=== PATIENT | female | born 1975 | race Caucasian/White ===

== ENCOUNTER 2017-08-04 06:16 | Inpatient (IN) | payer OTHER ==
[~2017-08-04] VITALS: Ht 167.6 cm; Wt 82.6 kg
[2017-08-04] VITALS (22 sets, daily range): BP systolic 113–154; BP diastolic 61–84
--- NOTE | ~2017-08-04 | EKG ---
[address] [address] ELECTROCARDIOGRAM REPORT Name: JACE CHOI Room #: 170-1 ADM IN M.R.#: [id number] Admission: 08/04/17 Attend Phys: Harshil Carrizales MD Discharge: Date of : 71 Report #: [id number] THIS REPORT FOR: //name// [facility] ED Test Date: 2017-08-04 Test Time: 07:02:22 Pat Name: JACE CHOI Department: Room: 170 Gender: F Tie Bucker: [place] : 1975 Requested By: Derrell Timmons Order Number: [id number] MD: En Arriaza Measurements Intervals [place] Rate: 76 P: 67 MN: 165 QRS: 29 QRSD: 142 T: 16 QT: 442 QTc: 498 Interpretive Statements Sinus rhythm Right bundle branch block No previous ECG available for comparison Electronically Signed On 08-04-2017 12:14:03 CDT by En Arriaza [email or web address] <ELECTRONICALLY SIGNED> By: En Arriaza MD 08/04/17 1214 0702 1 En Arriaza MD /MARCOS
--- NOTE | ~2017-08-04 | EKG ---
[address] [address] ELECTROCARDIOGRAM REPORT Name: JACE CHOI Jailyn Room #: 170-1 ADM IN M.R.#: [id number] Admission: 08/04/17 Attend Phys: Harshil Carrizales MD Discharge: Date of : 71 Report #: [id number] THIS REPORT FOR: //name// [facility] ED Test Date: 2017-08-04 Test Time: 08:38:52 Pat Name: JACE CHOI Department: Room: 170 Gender: F Certified Procedural Coder: [facility] : 1975 Requested By: Derrell Timmons Order Number: [id number] MD: En Arriaza Measurements Intervals [place] Rate: 122 P: 75 [place]: 111 QRS: 71 QRSD: 136 T: 13 QT: 364 QTc: 519 Interpretive Statements Sinus tachycardia Consider right atrial enlargement Right bundle branch block Probable inferior infarct, old Artifact in lead(s) II,III,aVR,aVF,V3,V4,V5,V6 No previous ECG available for comparison Electronically Signed On 08-04-2017 12:18:10 CDT by En Arriaza [email or web address] <ELECTRONICALLY SIGNED> By: En Arriaza MD 08/04/17 1218 En Arriaza MD /EPI
--- NOTE | ~2017-08-04 | HC ---
[facility] [place] [address] CONSULTATION Name: JACE CHOI Room #: 349-I [facility] IN ..#: [id number] Admission: 08/04/17 Attend Phys: Harshil Carrizales MD Discharge: 08/06/17 Date of : 71 Report #: [id number] THIS REPORT FOR: //name// CC: Vandana Carrizales DATE OF SERVICE: 08/04/2017 REASON FOR CONSULTATION: Hypoxia. IMPRESSION: 1. Possible bronchitis with mucus plugging. 2. Mild hilar mediastinal adenopathy. 3. Abdominal pain with nausea, vomiting and bloating with impacted gallstone. 4. Tobacco use. 5. Hyperglycemia. 6. Leukocytosis. 7. Metabolic acidosis. 8. Hypoxemia. PLAN: Aggressive pulmonary toilet, we will leave on the current she is on I believe at time of ABG likely was related to pain that she became hypoxemic in association with the mucus plugging. HISTORY OF PRESENT ILLNESS: A very pleasant 42-year-old female last night had abdominal pain, nausea, vomiting, bloating, took Fleet's enema, had 2 small bowel movements, had some bleeding at that time. Today, workup showed gallstone early in the week had sinus problems, cough and shortness of breath. PAST MEDICAL HISTORY: MEDICATIONS: Include fish oil, Flonase, Zyrtec, Synthroid and Prozac. ALLERGIES: TO HYDROCODONE. FAMILY HISTORY: No history of DVT or PE. SOCIAL HISTORY: Positive tobacco and ETOH, no drugs of abuse. 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 REVIEW OF SYSTEMS: History of anxiety, hypothyroidism, irritable bowel. Sinus disease. PHYSICAL EXAMINATION: VITAL SIGNS: Temperature 98.7, pulse 94, respirations 25, BP 133/78. EYES: Negative icterus. [facility] [address] [place] [address] CONSULTATION Name: STEPHJACE Room #: 349-I [facility] IN [facility]#: [id number] Admission: 08/04/17 Attend Phys: Harshil Carrizales MD Discharge: 08/06/17 Date of : 71 Report #: [id number] NECK: Negative JVD. LUNGS: Showed occasional wheeze. HEART: Regular. ABDOMEN: Bowel sounds present. EXTREMITIES: Showed no calf tenderness. CT and CBC were reviewed. We will follow closely with you. <ELECTRONICALLY SIGNED> By: Augustine Daniels MD 08/08/17 2316 2037 1301 Augustine Daniels MD /nt
--- NOTE | ~2017-08-04 | HC ---
[facility] [place] [address] CONSULTATION Name: JACE CHOI Room #: 349-I ADM IN ..#: [id number] Admission: 08/04/17 Attend Phys: Harshil Carrizales MD Discharge: Date of : 71 Report #: [id number] THIS REPORT FOR: //name// CC: Vandana Carrizales DATE OF SERVICE: 08/04/2017 REFERRING PROVIDER: Harshil Carrizales MD REASON FOR CONSULT: Abdominal pain. HISTORY OF PRESENT ILLNESS: The patient is a 42-year-old female who presented to the Emergency Room earlier today with complaints of abdominal pain, nausea, vomiting and bloating since 10:00 p.m. last night. The patient states that the pain began after eating and she felt as though she might have to have a bowel movement but was unable. The patient therefore went and got a Fleet enema, which she utilized and had only 2 small bowel movements as well as blood when wiping. In addition, the patient did have a history of sinus congestion earlier in the week and has been taking [id number] cold medications that she thought were exacerbating her abdominal complaints. The patient does have a history of undergoing colonoscopy 5 years ago for irritable bowel syndrome with polypectomy, but no other abnormalities. A thorough workup in the Emergency Room was conducted including laboratories, abdominal x-rays, a CT scan of the abdomen as well as a CT angiogram of the chest to rule out a pulmonary embolism and an ultrasound of the abdomen. Throughout this extensive workup, she has been found to have a leukocytosis with a white blood cell count of 14.2 thousand. Her liver function enzymes are normal. Abdominal x-ray and CT angiogram of the chest are both normal. No evidence of DVT in the bilateral lower extremities; however, her CT scan of the abdomen and pelvis as well as a followup ultrasound of the abdomen show mild gallbladder wall thickening with a gallstone lodged in the neck of the gallbladder that is nonmobile. Her troponins have been negative as well. As the patient is having abdominal pain and this appears to be a biliary source, I am asked to evaluate from a surgical standpoint. PAST MEDICAL HISTORY: Anxiety, irritable bowel syndrome and hypothyroidism. HOME MEDICATIONS: Prozac, Synthroid, Zyrtec, Flonase and fish oil. ALLERGIES: HYDROCODONE, which causes itching. FAMILY HISTORY: Reviewed and noncontributory. SOCIAL HISTORY: The patient smokes cigarettes and has smoked a half a pack a day for several years. She does drink alcohol on special occasions, [place] [address] CONSULTATION Name: JACE CHOI Room #: 349-I [facility] IN [facility].#: [id number] Admission: 08/04/17 Attend Phys: Harshil Carrizales MD Discharge: Date of : 71 Report #: [id number] to excess and denies illicit drug use. 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 REVIEW OF SYSTEMS: GENERAL: The patient denies nocturnal fevers or chills. HEENT: No change in vision, change in hearing. NECK: No swelling or difficulty swallowing. HEART: No chest pain, palpitations. LUNGS: No cough or shortness of breath. ABDOMEN: Abdominal pain, nausea, vomiting and bloating. GENITOURINARY: No dysuria or hematuria. ENDOCRINE: No polyuria, polydipsia. HEMATOLOGIC: No history of bleeding or easy bruising. EXTREMITIES: No history of weakness or limited range of motion. NEUROLOGIC: No history of syncope or near syncopal episodes. SKIN AND INTEGUMENT: No history of abnormal lesions or moles. PSYCHIATRIC: No history of anxiety or depression. PHYSICAL EXAMINATION: VITAL SIGNS: Temperature 36.4, pulse 86, respirations 18, blood pressure 154/77. She weighs 184 pounds. GENERAL: She is alert and oriented, in no acute distress. HEENT: Normocephalic, atraumatic. Pupils are equal, round, reactive to light. NECK: Supple, without lymphadenopathy. Trachea midline. HEART: Regular rate and rhythm. LUNGS: Clear to auscultation bilaterally. ABDOMEN: Soft, nondistended. She is tender to deep palpation of the right upper quadrant with no guarding, rebound or peritoneal signs or symptoms. GENITOURINARY: Normal external female genitalia. EXTREMITIES: No clubbing, cyanosis or edema. NEUROLOGIC: Cranial nerves 2-12 are grossly intact. PSYCHIATRIC: Normal mood and affect. SKIN AND INTEGUMENT: No abnormal lesions or moles. RECTAL: Deferred as it was performed by the Emergency Room physician with no signs of abnormality. LABORATORY AND X-RAY DATA: CBC shows white blood cell count of 14.2 thousand, hemoglobin 13.6, platelets 334,000. Her creatinine is 1.1. Liver function enzymes and lipase are normal. Urinalysis shows contaminated specimen. Abdominal x-ray shows small amount of stool in the colon, but normal findings otherwise. CT angiogram of the chest was negative. Chest x-ray negative. Lower extremity duplex ultrasound negative for DVT. CT scan of the abdomen, pelvis and ultrasound of the abdomen as per HPI show a gallstone lodged in the neck of the gallbladder with likely early acute cholecystitis. ASSESSMENT AND PLAN: A 42-year-old female with abdominal pain since 10:[address] [place] [address] CONSULTATION Name: JACE CHOI Room #: 349-I ADM IN M.R.#: [id number] Admission: 08/04/17 Attend Phys: Harshil Carrizales MD Discharge: Date of : 71 Report #: [id number] last night, accompanied by nausea, vomiting and bloating and a workup consistent with an impacted gallstone in the neck of the gallbladder with early acute cholecystitis. The patient has been admitted and I recommend continuation of ice chips today for comfort with strict n.p.o. after midnight and we will make plans to go to the operating room first thing tomorrow morning for laparoscopic cholecystectomy with cholangiogram. Risks, benefits and alternatives of that procedure have been discussed with the patient in detail and she agrees to proceed as outlined. I will initiate empiric antibiotic therapy at this time as well. I sincerely appreciate this consult. I will follow along and leave any further recommendations in the patient's chart as appropriate. <ELECTRONICALLY SIGNED> By: Joes Harris MD, FACS 08/05/17 0859 121 10 Jose Harris MD, FACS /nt
--- NOTE | ~2017-08-04 | S ---
[facility] [place] [address] SURGICAL PATH RPT PROCEDURE Name: KIANNA NINO Room #: 349-I DIS IN M.R.#: [id number] Admission: 08/04/17 Date of : 71 Discharge: 08/06/17 Report #: [id number] Path Case #: [id number] PATHOLOGY REPORT COLLECTION DATE: 08/05/2017 RECEIVED DATE: 08/06/2017 SUBMITTING PHYS: Dr. Jose Harris OTHER PHYS: Moy Hudson Dr[address] Dr. SPECIMEN(S) RECEIVED: A.Gallbladder * * * * * * * * * * * * FINAL DIAGNOSIS: "Gallbladder", cholecystectomy: - Acute cholecystitis and cholesterolosis. - Lymph node with hyperplasia. (1 node) (CLW:db; 08/07/2017) PATHOLOGIST: Kim Hope M.D. REPORT ELECTRONICALLY SIGNED BY: Kim Hope M.D. DATE/TIME: 08/07/2017 14:07 * * * * * * * * * * * * GROSS PATHOLOGY: Received in formalin labeled "Kianna Nino, gallbladder," is a 7.6 x 2.9 x 1.4 cm, previously opened gallbladder with cheek-reddy and smooth serosal surfaces. The opened gallbladder reveals green-brown mucosa that is stippled yellow highlights and an average wall thickness of 0.3 cm. Calculi are not present and a single lymph node is identified adjacent the neck aspect. Oil Developer sections from the body and fundus are submitted along with the proximal margin and lymph node in cassette A1. (SDY; 08/06/2017) CLINICAL HISTORY: Cholelithiasis INITIAL CPT CODE(S): A; 47325 Professional services performed by [facility] at [facility] [address] , [place] [address] [facility] [address] [place] [address] SURGICAL PATH RPT PROCEDURE Name: KIANNA NINO Jailyn Room #: 349-I DIS IN M.R.#: [id number] Admission: 08/04/17 Date of : 71 Discharge: 08/06/17 Report #: [id number] Path Case #: [id number] Technical services performed by [facility] at [address] [place] [address], [facility] [address] [place] [address]. [place] [address] PHONE: [phone] DIRECTOR: Gabriel Rodríguez M.D. * * * END OF REPORT * * *
--- NOTE | ~2017-08-04 | O ---
[facility] [place] [address] OPERATIVE REPORT Name: JACE CHOI Room #: 349-I ADM IN ..#: [id number] Admission: 08/04/17 Attend Phys: Harshil Carrizales MD Discharge: Date of : 71 Report #: [id number] THIS REPORT FOR: //name// CC: Vandana Carrizales DATE OF SERVICE: 08/05/2017 PREOPERATIVE DIAGNOSIS: Acute cholecystitis. POSTOPERATIVE DIAGNOSIS: Acute cholecystitis. PROCEDURE PERFORMED: Laparoscopic cholecystectomy with intraoperative cholangiogram. SURGEON: Jose Harris M.D. ATHLETIC EQUIPMENT MANAGER: Michael Diaz M.D. ANESTHESIA: General endotracheal anesthesia. ESTIMATED BLOOD LOSS: Minimal (less than 5 mL). COMPLICATIONS: None appreciated. SPECIMENS: Gallbladder to pathology. INDICATIONS: The patient is a 42-year-old female who presented to the Emergency Room yesterday with severe sudden onset epigastric and right upper quadrant abdominal pain that began the night prior. The patient underwent an extensive evaluation with findings of a gallstone impacted in the neck of the gallbladder. The patient was placed on empiric antibiotics and admitted and indication was for definitive surgical management today. DESCRIPTION OF PROCEDURE: After explaining the risks, benefits and alternatives of the procedure with the patient in detail in the preoperative holding area and obtaining written consent, the patient was brought to the operating room and placed supine on the operating room table. After conducting a thorough timeout procedure verifying correct patient and procedure, the patient was given general endotracheal anesthesia. Once adequate anesthesia was obtained, her SCDs were hooked up to pneumatic compression device. She was given a preoperative dose of antibiotics in line with the SCIP protocol as it was time for her regularly scheduled dose from her inpatient regimen. The patient's abdomen was then prepped and draped in standard surgical sterile fashion. 5 mL of 0.5% Marcaine with epinephrine were used to anesthetize the skin in the supraumbilical location. A #15 bladed scalpel was used to create a 1 cm transverse skin [address] [address] OPERATIVE REPORT Name: JACE CHOI Room #: 349-I [facility] IN [facility]#: [id number] Admission: 08/04/17 Attend Phys: Harshil Carrizales MD Discharge: Date of : 71 Report #: [id number] incision at this location. An 11 mm Visiport was placed over 0 degree 5 mm laparoscope and was introduced through this incision site. Once intra-abdominal placement was verified visually, the obturator for the trocar and laparoscope were both removed and the abdomen was insufflated to 15 mmHg using carbon dioxide gas. The laparoscope was changed to a 10-mm 30-degree laparoscope, which was reintroduced through this trocar. The entire abdomen was evaluated to ensure no injury upon entry. The patient was now placed in steep reverse Trendelenburg position with right side elevated and I proceeded to place 3 additional 5-mm ports. One was placed in subxiphoid location and 2 were placed along the patient's right subcostal margin. All 3 additional 5-mm ports were placed under direct vision after anesthetizing the skin at each location with 5 mL of 0.5% Marcaine with epinephrine and I created small skin nicks using #15 bladed scalpel. The patient's gallbladder was pale yet hyperemic and there was significant edema, all consistent with acute cholecystitis. Using the inferolateral most port along the patient's right flank, the fundus of the gallbladder was grasped and retracted cephalad. Careful tedious dissection was undertaken down around the cholecysto-cystic junction using combination of Harmonic scalpel and [place] dissector. Once I had attained a critical view, namely the cystic duct emanating from the infundibulum of the gallbladder and coursing the common bile duct as well as cystic artery running the surface of the gallbladder and I created a window behind each, I transected the cystic artery nearest the gallbladder side using Harmonic scalpel for hemostasis. A single clip was now placed along cystic duct nearest the gallbladder side and a small ductotomy was made just distal to this clip using EndoShears. This ductotomy was cannulated using the taut cholangiocatheter setup and an intraoperative cholangiogram was obtained. We had prompt opacification of a long cystic duct with both intra and extrahepatic bile ducts becoming opacified. There was antegrade flow of contrast into the duodenum with no evidence of filling defects or obstruction. The cholangiocatheter setup was now removed, 3 clips were placed along the cystic duct nearest the common bile duct side and the duct was transected between sets of clips using Harmonic scalpel to help seal the duct closed. Further retraction at the infundibulum of the gallbladder in cephalad direction allowed me to elevate the gallbladder off the liver bed using Harmonic scalpel for complete hemostasis. Once completely detached, the laparoscope was removed, changed to a 5-mm 30-degree laparoscope and was reintroduced through the right midclavicular 5 mm port. The EndoCatch bag was placed in the supraumbilical trocar and the specimen was placed within it under direct vision. The pursestring suture was drawn and specimen was removed from the abdomen under direct vision with ease. I now closed the supraumbilical fascial incision using 0 PDS suture on the Yo-Akilah suture passer device under direct vision. This was tied down after reducing insufflation pressure to 5 mmHg to ensure I did not catch a loop of bowel or omentum in the suture repair. A final evaluation of the gallbladder fossa showed complete hemostasis, although there was still significant periportal edema from her cholecystitis, I did elect to place Florina in the bed of the gallbladder fossa for assistance with long-term hemostasis. The abdomen was fully desufflated. All remaining [address] [address] OPERATIVE REPORT Name: JACE CHOI Room #: 349-I ADM IN [facility]#: [id number] Admission: 08/04/17 Attend Phys: Harshil Carrizales MD Discharge: Date of : 71 Report #: [id number] trocars were removed under direct vision. A 4-0 Monocryl was used in a standard subcuticular fashion for all skin incisions and Dermabond glue was applied to all skin wounds. The gallbladder was opened on the back table showing significant findings of marked cholesterolosis consistent with chronic cholecystitis. However, there was a stone impacted in the neck of the gallbladder and gallbladder wall thickening with edema, all consistent with acute cholecystitis as well. At the end of the procedure, all instrument, needle and sponge counts were correct. The patient tolerated the procedure without incident, was awakened in the operating room and transitioned to the recovery room in stable condition with no apparent complications. <ELECTRONICALLY SIGNED> By: Jose Harris MD, FACS 08/05/17 1043 1022 1039 Jose Harris MD, FACS /nt
[2017-08-04] MEDS ORDERED: PROZAC20 MG PO (06:35)
[2017-08-04] MEDS ORDERED: TIROSINT25 MCG PO (06:36)
[2017-08-04] MEDS ORDERED: ZYRTEC10 MG PO (06:36)
[2017-08-04] MEDS ORDERED: FLONASE 0.05%50 MCG NASAL (06:36)
[2017-08-04] MEDS ORDERED: FISH OIL 1,001000 M2 PO (06:37)
[2017-08-04 06:57] LABS: URINE BILIRUBIN NEGATIVE (Negative); URINE BLOOD 3+ (Negative); URINE CLARITY CLEAR; URINE COLOR YELLOW; URINE GLUCOSE-RANDOM* NEGATIVE (Negative); URINE KETONES 1+ (Negative); URINE LEUKOCYTES-REFLEX NEGATIVE (Negative); URINE NITRITE-REFLEX NEGATIVE (Negative); URINE PROTEIN (DIPSTICK) NEGATIVE (Negative); URINE SPECIFIC GRAVITY 1.025 (1.005-1.035); URINE UROBILINOGEN 0.2 E.U./dl (0.2-1.0)
[2017-08-04 07:00] LABS: ABSOLUTE NEUTROPHILS 11.6 thou/uL (1.4-8.2); BASOPHILS 0.2 % (0.0-2.0); EOSINOPHILS 0.1 % (0.0-3.0); HEMATOCRIT 39.7 % (37.0-47.0); HEMOGLOBIN 13.6 gm/dL (12.0-15.0); LYMPHOCYTES 14.5 % (24.0-44.0); MCH 31.6 pg (26.0-34.0); MCHC 34.2 g/dL (28.0-37.0); MCV 92.2 fL (80.0-100.0); MONOCYTES 3.6 % (1.0-8.0); PLATELET COUNT 334 thou/uL (150-400); POLYS 81.6 % (36.0-66.0); RBC 4.31 mil/uL (4.20-5.00); RDW 13.2 % (10.5-14.5); WBC 14.2 thou/uL (4.0-11.0)
[2017-08-04 07:08] LABS: ANION GAP 13 mmol/L (7-16); BUN 11 mg/dL (7-18); CALCIUM 9.5 mg/dL (8.5-10.1); CHLORIDE 103 mmol/L (98-107); CO2 19 mmol/L (21-32); CREATININE 1.1 mg/dL (0.6-1.0); GLUCOSE 142 mg/dL (74-106); POTASSIUM 3.6 mmol/L (3.5-5.1); SODIUM 135 mmol/L (136-145)
[2017-08-04 07:17] LABS: ALBUMIN 3.3 g/dL (3.4-5.0); LIPASE 170 U/L (73-393); SGOT 17 U/L (15-37); SGPT 22 U/L (30-65); TOTAL BILIRUBIN 0.2 mg/dL (<0.1-1.0); TOTAL PROTEIN 8.2 g/dL (6.4-8.2); TROPONIN-I < 0.04 ng/mL (<0.06)
[2017-08-04 07:18] LABS: SQUAMOUS 4-10 Moderate /LPF (0-3)
[2017-08-04 07:19] LABS: CASTS None Seen /LPF (None Seen); CRYSTALS None Seen /LPF (None Seen); MUCUS 0-3 Light strn/LPF (None Seen)
[2017-08-04 07:20] LABS: BACTERIA-REFLEX 1-9 Few /HPF (None Seen); URINE WBC-REFLEX None Seen /HPF (0-5)
[2017-08-04 08:51] LABS: BE(vivo) -7.9 mmol/L (-2 to +3); HCO3 14.9 mmol/L (22.0-26.0); pH 7.397 (7.360-7.450); sO2 88.9 % (92.0-98.0)
[2017-08-04 08:52] LABS: PCO2 24.8 mmHg (35.0-45.0); PO2 54.2 mmHg (80.0-100.0)
[2017-08-04 20:47] LABS: CALCIUM 8.1 mg/dL (8.5-10.1); CREATININE 1.1 mg/dL (0.6-1.0); POTASSIUM 3.4 mmol/L (3.5-5.1)
[2017-08-05 04:50] VITALS: BP 122/72
[2017-08-05 05:43] LABS: HEMATOCRIT 34.4 % (37.0-47.0); MCH 31.3 pg (26.0-34.0); MCHC 33.7 g/dL (28.0-37.0); MCV 93.1 fL (80.0-100.0); RBC 3.69 mil/uL (4.20-5.00); RDW 13.2 % (10.5-14.5); WBC 20.3 thou/uL (4.0-11.0)
[2017-08-05 05:46] LABS: HEMOGLOBIN 11.6 gm/dL (12.0-15.0)
[2017-08-05 06:01] LABS: ALBUMIN 2.5 g/dL (3.4-5.0); CALCIUM 8.1 mg/dL (8.5-10.1); POTASSIUM 3.6 mmol/L (3.5-5.1); TOTAL BILIRUBIN 0.3 mg/dL (<0.1-1.0); TOTAL PROTEIN 6.5 g/dL (6.4-8.2)
[2017-08-05 07:04] VITALS: BP 137/83
[2017-08-05 20:00] VITALS: BP 119/66
[2017-08-06 03:40] VITALS: BP 116/56
[2017-08-06 05:51] LABS: HEMATOCRIT 29.8 % (37.0-47.0); HEMOGLOBIN 10.4 gm/dL (12.0-15.0); MCH 32.1 pg (26.0-34.0); MCHC 34.7 g/dL (28.0-37.0); MCV 92.5 fL (80.0-100.0); RBC 3.23 mil/uL (4.20-5.00); RDW 13.2 % (10.5-14.5); WBC 20.4 thou/uL (4.0-11.0)
[2017-08-06 06:09] LABS: ALBUMIN 2.3 g/dL (3.4-5.0); CREATININE 0.9 mg/dL (0.6-1.0); POTASSIUM 3.2 mmol/L (3.5-5.1); TOTAL BILIRUBIN 0.3 mg/dL (<0.1-1.0); TOTAL PROTEIN 5.9 g/dL (6.4-8.2)
[2017-08-06 07:50] VITALS: BP 131/71
[2017-08-06] MEDS ORDERED: LEVOFLOXACIN750 MG PO (11:53)
[2017-08-06] MEDS ORDERED: VENTOLIN HFA 1818 GM INH (11:59)
[2017-08-06 12:01] VITALS: BP 140/75
[2017-08-06] MEDS ORDERED: PREDNISONE 10 M10 MG PO (12:06)
[2017-08-06] MEDS ORDERED: WELLBUTRIN XL150 MG PO (13:01)
[2017-08-06 13:05] VITALS: BP 140/75
[2017-08-06] MEDS ORDERED: TRAMADOL 50 MG50 MG PO (14:33)
== END 2017-08-06 14:52 | disposition home or self-care (01) | DRG 853 ==
LOC: ER 06:16 → 3W 09:19 → EROBS 09:19 → ICU 13:29 → 3W 23:27 → ENTRNSPT 08-06 14:40 → EDTRNSPTSTS 08-06 14:42 → 3W 08-06 14:52
PROVIDERS: Emergency Medicine; Hospitalist; Internal Medicine Pulmonary Disease; Surgery
PROC: BF131ZZ Fluoroscopy of Gallbladder and Bile Ducts using Low Osmolar Contrast (ICD-10-PCS; principal; 2017-08-05)
PROC: 0FT44ZZ Resection of Gallbladder, Percutaneous Endoscopic Approach (ICD-10-PCS; principal; 2017-08-05)
DX: A41.9 Sepsis, unspecified organism (principal); J96.01 Acute respiratory failure with hypoxia; K80.00 Calculus of gallbladder with acute cholecystitis without obstruction; E87.2 Acidosis; R59.0 Localized enlarged lymph nodes; R73.9 Hyperglycemia, unspecified; E03.9 Hypothyroidism, unspecified; K58.9 Irritable bowel syndrome, unspecified; F17.210 Nicotine dependence, cigarettes, uncomplicated; T17.990A Other foreign object in respiratory tract, part unspecified in causing asphyxiation, initial encounter; X58.XXXA Exposure to other specified factors, initial encounter; F32.9 Major depressive disorder, single episode, unspecified; F41.0 Panic disorder [episodic paroxysmal anxiety]; Z71.6 Tobacco abuse counseling; Y93.89 Activity, other specified; Y92.89 Other specified places as the place of occurrence of the external cause; Y99.8 Other external cause status; Z79.51 Long term (current) use of inhaled steroids; Z79.899 Other long term (current) drug therapy; Z88.8 Allergy status to other drugs, medicaments and biological substances
CPT/HCPCS: 10879; 50249; 50411; 50555; 50558; 50900; 50962; 51489; 51975; 52265; 52287; 53307; 54022; 54118; 55245; 55317; 56462; 56525; 56526

== ENCOUNTER → 2020-11-19 | Outpatient (CLI) | payer OTHER ==
[~2020-11-19] VITALS: Ht 170.2 cm; Wt 81.6 kg
[~2020-11-19] MED LIST: APPLE CIDER VI500 MG PO; COZAAR 25 MG TA25 MG PO; DROSPIRENONE-E1 EACH PO; FISH OIL 1,001000 M2 PO; FLONASE 0.05%50 MCG NASAL; LEVOFLOXACIN750 MG PO; PREDNISONE 10 M10 MG PO; PROZAC20 MG PO; TIROSINT25 MCG PO; TRAMADOL 50 MG50 MG PO; VENTOLIN HFA 1818 GM INH; WELLBUTRIN XL150 MG PO; ZYRTEC10 MG PO
--- NOTE | ~2020-11-19 | P ---
[facility] [place] [address] PROCEDURE REPORT Name: JACE CHOI Room #: REG [facility] Neelam#: [id number] Admission: 11/19/20 Attend Phys: Joey Brenner Discharge: Date of : 71 Report #: [id number] THIS REPORT FOR: cc: FAM - Family physician unknown FAM - Family physician unknown Joey Winston MD ~ DATE OF SERVICE: 11/19/2020 PROCEDURE PERFORMED: Incomplete colonoscopy due to poor prep. HISTORY OF PRESENT ILLNESS: The patient is a 45-year-old female with recent positive Cologuard testing. She denies any symptoms. No family history of colon cancer. Last colonoscopy was 10 years ago, was normal. DESCRIPTION OF PROCEDURE: The risks and benefits of the procedure were explained to the patient, those risks including but not limited to bleeding, perforation and the risk of sedation. She understood these risks and gave informed consent. Sedation was given using propofol per anesthesia. Next, a digital rectal exam was initially performed, which was normal. Next, using a standard Olympus colonoscope, the scope was placed in the patient's anus and advanced under direct vision into the sigmoid colon as well as the descending colon, at which point, it was obvious the prep was poor throughout these areas despite trying some washings and aspirations, the prep was inadequate. At this point, the scope was slowly withdrawn. The areas that were visualized in the sigmoid colon and rectum appeared normal. The scope was withdrawn and the procedure terminated. The patient tolerated the procedure well. IMPRESSION: Incomplete colonoscopy secondary to poor prep. RECOMMENDATIONS: Reschedule in the near future with different prep. Thank you for allowing me to participate in her care. By: 0911 2105 Joey Winston MD /nt
== END | disposition home or self-care (01) ==
LOC: GI 08:13
PROVIDERS: ATTEND Specialist
DX: R19.5 Other fecal abnormalities (principal); I10 Essential (primary) hypertension; F32.9 Major depressive disorder, single episode, unspecified; F41.9 Anxiety disorder, unspecified; F17.210 Nicotine dependence, cigarettes, uncomplicated; E03.9 Hypothyroidism, unspecified; Z98.890 Other specified postprocedural states; Z79.899 Other long term (current) drug therapy; Z88.8 Allergy status to other drugs, medicaments and biological substances
CPT/HCPCS: 62110; 62900

== ENCOUNTER → 2021-02-02 | Outpatient (CLI) | payer OTHER ==
[~2021-02-02] MED LIST changes: +PROZAC40 MG PO
== END | disposition home or self-care (01) ==
LOC: LAB 08:46
PROVIDERS: ATTEND Student in an Organized Health Care Education/Training Program
DX: Z01.818 Encounter for other preprocedural examination (principal); Z20.822 Contact with and (suspected) exposure to COVID-19

== ENCOUNTER → 2021-02-04 | Outpatient (CLI) | payer OTHER ==
[~2021-02-04] VITALS: Ht 167.6 cm; Wt 75.8 kg
--- NOTE | ~2021-02-04 | P ---
[facility] [place] [address] PROCEDURE REPORT Name: JACE CHOI Room #: REG [facility] Chandrakant.#: [id number] Admission: 02/04/21 Attend Phys: Joey Brenner Discharge: Date of : 71 Report #: [id number] THIS REPORT FOR: cc: Vandana Beckford MD, Christine MD Mc[place]hin[place],Joey Connors MD ~ DATE OF SERVICE: 02/04/2021 PROCEDURE PERFORMED: Colonoscopy with biopsies. HISTORY OF PRESENT ILLNESS: The patient is a 45-year-old female with a history of positive Cologuard test. She underwent an attempted colonoscopy by myself on 11/19/2020. However, it was incomplete secondary to poor prep. She is now here for a repeat attempt. She reports prep went well last evening. She has no other symptoms. No family history of colon cancer. DESCRIPTION OF PROCEDURE: The risks and benefits of the procedure were explained to the patient, those risks including but not limited to bleeding, perforation and the risk of sedation. She understood these risks and gave informed consent. Sedation was given using propofol per anesthesia. Next, a digital rectal exam was initially performed, which was normal. Next, using a standard Olympus colonoscope, the scope was placed in the patient's anus and advanced under direct vision to the cecum. The overall prep was good. The cecum and ileocecal valve were normal in appearance. Ascending, transverse colon were normal. In the descending colon, a 4 mm sessile polyp was noted. This was removed with cold forceps, otherwise normal. The sigmoid colon was normal. The rectal mucosa was normal. On retroflexion, no abnormalities were noted. The scope was then withdrawn and the procedure terminated. The patient tolerated the procedure well. IMPRESSION: 1. Small descending colon polyp. 2. Otherwise, normal colonoscopy. RECOMMENDATIONS: 1. Await biopsy results. 2. If polyp is hyperplastic, repeat in 10 years; if adenomatous polyp, repeat in 5 years. Thank you for allowing me to participate in her care. By: 0912 19 Joey Winston MD /nt
--- NOTE | 2021-02-07 19:06 | PATH ---
[facility] [address] [place] [address] PATHOLOGY RPT PROCEDURE Name: KIANNA CHOI Room #: [facility] M..#: [id number] Admission: 02/04/21 Date of : 71 Discharge: Report #: [id number] Path Case #: [id number] [facility] Accession Number: [id number] . 01 Material submitted: . colon - DESCENDING COLON POLYP BIOPSY. Modifiers: descending . 01 Clinical history: . COLONOSCOPY POSITIVE COLOGUARD COLON POLYP . 02 Diagnosis: Polyp, descending colon polyp, endoscopic biopsy: - Hyperplastic polyp. - Negative for dysplasia. (IUV:pit; 02/07/2021) QTP 02/07/2021 1236 Local . 02 Electronically signed: . Clair Schultz MD, Pathologist NPI- [id number] . 01 Gross description: . Received in formalin labeled "Klemp, Kianna, descending colon polyp BX" are 2 reddy-brown soft tissue fragments measuring in aggregate 0.4 x 0.2 x 0.1 cm. The specimen is submitted entirely in A1. [place] [place] [facility] 02/05/2021 1148 Local . 02 Pathologist provided ICD-10: K63.5 . 02 CPT . 098717 Specimen Comment: A courtesy copy of this report has been sent to [phone], [phone] Specimen Comment: [phone] Specimen Comment: Report sent to DR. DIAZ / DR PICHARDO Specimen Comment: Report sent to [facility]formed [facility]: [facility] [address] [place] [address] [address], [place] [id number] MD Sanjeev Dowling MD Phone: [phone] Performed at: [address] [id number] MD Clair Schultz MD Phone: [phone]
== END | disposition home or self-care (01) ==
LOC: GI 07:56
PROVIDERS: ATTEND Specialist
DX: R19.5 Other fecal abnormalities (principal); K63.5 Polyp of colon; I10 Essential (primary) hypertension; E03.9 Hypothyroidism, unspecified; F32.9 Major depressive disorder, single episode, unspecified; F41.9 Anxiety disorder, unspecified; F17.210 Nicotine dependence, cigarettes, uncomplicated; Z98.890 Other specified postprocedural states; Z79.899 Other long term (current) drug therapy; Z90.49 Acquired absence of other specified parts of digestive tract; Z88.8 Allergy status to other drugs, medicaments and biological substances
CPT/HCPCS: 62110; 62900